=== PATIENT | female | born 1985 | race Caucasian/White ===

== ENCOUNTER 2018-01-11 21:03 | Emergency (ER) | payer BC, OTHER ==
[2018-01-11 21:14] VITALS: BP 141/98
--- NOTE | 2018-01-11 21:42 | ER Document Report ---
HPI - HPI Patient complains to provider of: Flulike symptoms Pain Level: 2 Context: Flulike symptoms that started yesterday. She admits to fever, body aches, cough. States that she works at [employer] she admits to likely sick contacts. Did not receive a flu vaccine this year. Otherwise denies any nausea, vomiting , abdominal pain, diarrhea, constipation. Admits to adequate p.o. intake and denies any decreased urine output. Otherwise healthy female. Non-smoker - CONSTITUTIONAL Constitutional: REPORTS: Fever, Chills - EENT EENT: DENIES: Sore Throat, Ear Pain, Eye problems - NEURO Neurology: REPORTS: Headache, Weakness. DENIES: Vision blurred, Dizzinesss / Vertigo - CARDIOVASCULAR Cardiovascular: DENIES: Chest pain - RESPIRATORY Respiratory: REPORTS: Trouble Breathing, Coughing - GASTROINTESTINAL Gastrointestinal: DENIES: Abdominal Pain, Black / Bloody Stools - URINARY Urinary: DENIES: Dysuria, Urgency, Frequency - REPRODUCTIVE Reproductive: DENIES: : - MUSCULOSKELETAL Musculoskeletal: REPORTS: Extremity pain - Body aches Past Medical History - Social History Smoking Status: Unknown if Ever Smoked Chew tobacco use (# tins/day): No Frequency of alcohol use: None Drug Abuse: None Family History: Reviewed & Not Pertinent, Other - mom and grandmother both with gallbladder removed Patient has suicidal ideation: No Patient has homicidal ideation: No Pulmonary Medical History: Reports: Hx Bronchitis Renal/ Medical History: Denies: Hx Peritoneal Dialysis Past Surgical History: Reports: Hx Cholecystectomy - Immunizations Immunizations up to date: Yes Hx Diphtheria, Pertussis, Tetanus Vaccination: Yes Vertical Provider Document - CONSTITUTIONAL Agree With Documented VS: Yes Notes: PHYSICAL EXAM GENERAL: Alert, interacts well. HEENT: NCAT, pale conjunctiva, extraocular movements intact, pupils PERRL. external ear normal, no evidence of external auditory canal tenderness, blood/ drainage, cerumen impaction, TM intact without evidence of effusion, bulging, injection, MMM, Uvula midline. Airway patent. No evidence of tonsillar enlargement, peritonsillar abscess, retropharyngeal abscess. LUNGS: Clear to auscultation bilaterally, no wheezes, rales, or rhonchi. No respiratory distress. HEART: Regular rate and rhythm. No murmurs, gallops, or rubs. EXTREMITIES: Moves all 4 extremities spontaneously. No edema, radial and dorsalis pedis pulses 2/4 bilaterally. No cyanosis. NEUROLOGICAL: Alert and oriented x4. Normal speech. PSYCH: Normal affect, normal mood. SKIN: Warm, dry, normal turgor. No rashes or lesions noted. - INFECTION CONTROL TRAVEL OUTSIDE OF THE [place] IN LAST 30 DAYS: No - RESPIRATORY O2 Sat by Pulse Oximetry: 97 Course - Re-evaluation Re-evalutation: 01/11/18 21:40 Patient presents with cough, body aches and fever at home consistent with a diagnosis of influenza. Patient is overall well in appearance, in no acute distress. Lung sounds clear. Able to tolerate oral intake without difficulty here in the emergency department. After risks and benefits conversation with the patient regarding the use of Tamiflu, they have elected to use supportive care without Tamiflu based on concerns about lack of efficacy as well as the side effect profile. At this time will discharge with return precautions and follow-up recommendations. Verbal discharge instructions given a the bedside and opportunity for questions given. Medication warnings reviewed. Patient is in agreement with this plan and has verbalized understanding of return precautions and the need for primary care follow-up in the next 24-72 hours. - Vital Signs Vital signs: Temp Pulse Resp BP Pulse Ox 99.5 F 94 20 141/98 H 97 01/11/18 21:12 01/11/18 21:12 01/11/18 21:12 01/11/18 21:12 01/11/18 21:12 Discharge - Discharge Clinical Impression: Flu-like symptoms Condition: Good Disposition: HOME, SELF-CARE Additional Instructions: You have symptoms consistent with influenza. There is no treatment that is effective for this diagnosis other than supportive care at home. This includes drinking plenty of fluids, using Tylenol or ibuprofen as needed for fever and discomfort, and Zofran as needed for nausea and vomiting. Please follow closely with you primary care physician the next 1-2 days regarding this diagnosis. Return to the emergency department immediately if you began to have persistent vomiting prevents you from being able to keep fluids down for more than 12 hours, you pass out, you began having difficulty breathing, you become confused, or you have any other symptoms that are worrisome to you. Prescriptions: Benzonatate [Tessalon Perles 100 mg Capsule] 100 mg PO ASDIR PRN #40 capsule PRN Reason: Ondansetron [Zofran Odt 4 mg Tablet] 1 - 2 tab PO Q4H PRN #15 tab.rapdis PRN Reason: For Nausea/Vomiting Forms: Elevated Blood Pressure Referrals: BETTINA SERRATO MD [[facility]UNITY BASED STAFF] - Follow up in 1 week
== END 2018-01-11 21:46 | disposition home or self-care (01) ==
LOC: ER 21:03
DX: R50.9 Fever, unspecified (principal); R05 Cough; R06.00 Dyspnea, unspecified; R52 Pain, unspecified
CPT/HCPCS: 99283